=== PATIENT | female | born 1975 | race Caucasian/White ===

== ENCOUNTER → 2017-11-02 11:13 | Outpatient (CLI) | payer BC, SELFPAY | PROVIDERS: Family Provider Internal Medicine; PCP Internal Medicine | DX: R10.13 Epigastric pain (principal); R94.31 Abnormal electrocardiogram [ECG] [EKG]; R07.9 Chest pain, unspecified | CPT/HCPCS: 93225; 93226 ==

== ENCOUNTER → 2018-01-17 11:42 | Outpatient (CLI) | payer BC, SELFPAY ==
--- NOTE | 2018-01-17 15:30 | STRESSREP ---
Stress Test Report Treadmill EKG results: Resting EKG: Normal sinus rhythm, normal axis, normal intervals, no evidence of previous myocardial infarction. Treadmill EKG: Patient exercised according to a Florentino protocol for 9 minutes and 0 seconds achieving a workload of 10.1 METS. Resting heart rate was initially 72 beats a minute cynthia to maximum 157 bpm which represents 89% of the maximal age-predicted heart rate. Resting blood pressure was 102/68 and cynthia to maximum of 148/84. Test was terminated due to leg fatigue. During exercise the patient's heart rate increased as expected. Patient had subtle upsloping ST segment depression at peak exercise but did not reach criteria for ischemia. Rare PAC noted. No ventricular arrhythmias noted. Conclusions: Normal adequate treadmill EKG. Negative for ischemia by EKG criteria. No anginal symptoms noted. Rare PAC noted. Average exercise capacity for age. Test terminated due to leg discomfort.
== END ==
PROVIDERS: Family Provider Internal Medicine; PCP Internal Medicine; Visit Provider Internal Medicine Cardiovascular Disease
DX: R07.9 Chest pain, unspecified (principal)
CPT/HCPCS: 93017

== ENCOUNTER 2018-08-08 16:34 | Emergency (ER) | payer BC, SELFPAY ==
[2018-08-08 16:36] VITALS: BP 119/87; PULSE 72; RESP 18; TEMP 36.6; O2SAT 100; BMI 21.6
--- NOTE | 2018-08-08 17:10 | ED.VIS.GEN ---
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 She had gradual onset of discomfort in her medial left scapular area going up into her neck, and it has worsened, especially at work. When she puts parts on her lap to work on them, it is more comfortable position-quiroz. She denies any numbness or weakness in her arms. It also hurts up into her left neck and worse to turn her head to the left. She is right-hand dominant. She denies any injury or new motions at work. Prior similar symptoms: No Past Medical History - Allergies and Home Meds Allergies/Adverse Reactions: Allergies acetaminophen [From Vicodin] Allergy (Verified 08/08/18 16:36) Hives hydrocodone Allergy (Verified 08/08/18 16:36) Hives Sulfa (Sulfonamide Antibiotics) Allergy (Verified 08/08/18 16:36) Swelling Primary Care Physician: Dana Merchant MD [Primary Care Provider] - Past Medical History: None Lives: Spouse/ Significant Other Smoking Status: Current some day smoker Review of Systems General: Denies: Chills, Fever Musculoskeletal: Reports: Neck pain, Back pain. Denies: Swelling, Extremity Pain Skin: Denies: Rash, Abscess, Wounds Neurological: Denies: Headache, Weakness, Parasthesia, Numbness Physical Exam Vital Signs/Narrative: Vital Signs Temp Pulse Resp BP Pulse Ox 08/08/18 16:36 98 F 72 18 119/87 H 100 Inital Vital Signs reviewed: Yes General: Well nourished, Well developed, - - Well-appearing, NAD Head: Normocephalic, Atraumatic Eyes: Perrl, EOMI Back: - - Tender in trapezius on left, especially in area of rhomboids on left between the thoracic spine and the scapula. No sternocleidomastoid tenderness. Full range of motion of the neck and back and left upper extremity including abduction and extension above head.. Negative for: Spinal tenderness Extremities: Nontender - No proximal humerus or bony scapular tenderness. No clavicle tenderness., No edema Skin: Normal color, No rash, No Trauma Neurological: Alert, Oriented x3, Cranial nerves II-XII grossly intact, Normal Strength, Normal Sensation, Normal DTR Psychological: Normal affect Diagnostic/Tx/Re-eval - Medical Decision Making No x-rays are indicated, this is likely muscular pain due to overuse. I think mostly involving the trapezius, possibly also the left rhomboids. Prescribed meloxicam and Norflex, given injections of Toradol and Norflex here and advised to follow-up and try to find a lower position to use her arms if possible. ED Disposition - Plan for ED Patient: Disposition: Home or Assisted Living Chief Complaint: Upper Extremity Injury Diagnosis: Strain of left trapezius muscle Instructions: ED Sprain Thoracic Spine Prescriptions: Meloxicam 7.5 - 15 mg PO DAILY PRN #15 tablet PRN Reason: Pain Orphenadrine [Norflex ER] 100 mg PO BID PRN #28 tablet PRN Reason: Muscle Spasm Referrals: Dana Merchant MD [Primary Care Provider] - 1 Week if not improving
[2018-08-08] MEDS: Ketorolac 30 MG/ML Syringe IM (17:26)
[2018-08-08] MEDS: Orphenadrine 60 MG/2 ML Ampul IM (17:26)
[2018-08-08 17:53] VITALS: PULSE 74; RESP 18; O2SAT 100
== END 2018-08-08 17:54 | disposition home or self-care (01) ==
PROVIDERS: Emergency Provider Emergency Medicine; Family Provider Internal Medicine; PCP Internal Medicine
DX: S29.012A Strain of muscle and tendon of back wall of thorax, initial encounter (principal); X50.1XXA Overexertion from prolonged static or awkward postures, initial encounter; Y93.9 Activity, unspecified; F17.200 Nicotine dependence, unspecified, uncomplicated
CPT/HCPCS: 96372; 99282

== ENCOUNTER → 2018-11-05 08:57 | Outpatient (CLI) | payer BC, SELFPAY ==
--- NOTE | 2018-11-05 09:00 | RAD_ITS ---
STUDY: X-RAY - ESOPHAGUS (BARIUM SWALLOW) WITH FLUOROSCOPY REASON FOR EXAM: Female, 43 years old. Oral pharyngeal dysphagia. TECHNIQUE: 12 view(s) of the esophagus were obtained following swallowing of barium. FLUOROSCOPY TIME (if supplied): (0:41) minutes/seconds COMPARISON: None. FINDINGS: There is no demonstrated esophageal foreign body. There is no demonstrated stricture or mucosal abnormality. Normal gastroesophageal junction, without a demonstrated hiatal hernia. The patient ingested a 12 mm tablet of barium without any difficulty. Normal visualized aortic arch and descending thoracic aorta. Normal visualized pulmonary parenchyma. Normal visualized osseous structures of the thorax. RAD/Esophagus Only IMPRESSION: Normal plain film x-ray examination (barium swallow) of the esophagus. Electronically Signed: Silviano De La O MD at 11:24 EST , Service support ,
== END ==
LOC: RAD 08:58
PROVIDERS: Family Provider Internal Medicine; PCP Internal Medicine; Referring Provider Nurse Practitioner Adult Health; Visit Provider Nurse Practitioner Adult Health
DX: R13.12 Dysphagia, oropharyngeal phase (principal)
CPT/HCPCS: 74220

== ENCOUNTER 2020-02-29 15:40 | Emergency (ER) | payer SELFPAY ==
[2020-02-29 15:40] VITALS: BP 136/93; PULSE 101; RESP 16; TEMP 36.4; O2SAT 97; BMI 20.6
--- NOTE | 2020-02-29 15:54 | ED.VIS.GEN ---
History of Present Illness Chief Complaint: Nausea/Vomiting/Diarrhea Informant: Patient Onset: Hours - Onset 0300 Context: Sudden Onset Timing: Continuous - Abdominal pain is continuous. Quality: Pain that waxes and wane and is crampy in nature Location: Generalized Current Severity: Mild Maximum Severity: Moderate Worsened by: Vomiting and diarrhea Relieved by: Nothing Associated Symptoms: Chills and feeling cold Narrative: Patient is a 44-year-old woman who presents because of generalized abdominal pain with nausea, vomiting diarrhea that started at 0300. She has been watching her granddaughter who has been ill for the past 4 to 5 days. Her granddaughter initially had nausea, vomiting diarrhea. Granddaughter now has temperature documented 104 with respiratory symptoms. Patient denies headache, visual, ocular auditory symptoms. Patient denies upper respiratory symptoms. She denies cough. She denies chest pain. She denies back or flank pain. She denies dysuria, frequency, urgency or hematuria. She does have a past medical history of hypertension. She denies history of IBS or inflammatory bowel disorder. Prior similar symptoms: No Recent Illness/Hospitalization: No - Past Medical History (1) History of hypertension Status: Acute Past Medical History - Allergies and Home Meds Allergies/Adverse Reactions: Allergies hydrocodone Allergy (Verified 02/29/20 15:42) Hives Sulfa (Sulfonamide Antibiotics) Allergy (Verified 02/29/20 15:42) Swelling Primary Care Physician: Dana Merchant MD [Primary Care Provider] - Prior records reviewed: Yes Surgical History: noncontributory Lives: Spouse/ Significant Other Smoking Status: Current some day smoker Alcohol: Rare Drugs: None Review of Systems General: Reports: Chills, Malaise. Denies: Fever, Subjective, Sweats Eyes: Denies: Visual changes - bilaterally, Blurred Vision - bilaterally ENT: Reports: - - She does report dry mouth and thirst.. Denies: Bilateral ear pain, Rhinorrhea, Sore throat Cardiovascular: Reports: - - Does report lightheadedness.. Denies: Chest pain, Palpitations Respiratory: Denies: Dyspnea, Cough, Dyspnea on exertion Gastrointestinal: Reports: Abdominal pain, Nausea, Vomiting, Diarrhea. Denies: Melena, Hematochezia Genitourinary: Denies: Dysuria, Hematuria, Frequency Musculoskeletal: Denies: Myalgias, Arthralgias, Neck pain, Back pain, Swelling, Extremity Pain, -, - Neurological: Reports: Weakness. Denies: Headache, Parasthesia Hematologic: Denies: Easy bruising, Easy bleeding Allergy: Denies: Uticaria Physical Exam Vital Signs/Narrative: Vital Signs Temp Pulse Resp BP Pulse Ox 02/29/20 15:40 97.6 F L 101 H 16 136/93 H 97 Inital Vital Signs reviewed: Yes General: Well nourished, Well developed, No Acute Distress Head: Normocephalic, Atraumatic Eyes: Perrl, EOMI. Negative for: Pale conjunctiva, Scleral icterus ENT: No rhinorrhea, TM's clear, Dry mucous membranes Neck: Supple, Nontender, No lymphadenopathy, No JVD Cardiovascular: Regular rhythm, No murmurs, Normal S1, Normal S2, Tachycardia Respiratory: No distress, CTA bilaterally, Chest nontender Abdomen: Soft, Nontender, Nondistended, No masses, Hyperactive bowel sounds. Negative for: Hepatomegaly, Splenomegaly Rectal: Deferred Back: Nontender, Normal Inspection Extremities: Nontender, No edema Skin: Normal color, No rash, - - Has a tanned secondary to going to tanning salon. Neurological: Alert, Oriented x3, Cranial nerves II-XII grossly intact, Normal Strength, Normal Sensation Psychological: Normal affect, Normal Mood Diagnostic/Tx/Re-eval Laboratory Results 02/29/20 02/29/20 16:10 16:50 Sodium Cancelled 139 Potassium Cancelled 3.7 Chloride Cancelled 108 H Carbon Dioxide Cancelled 25.0 Anion Gap Cancelled 6 BUN Cancelled 11 Creatinine Cancelled 0.83 Estim Creat Clear Calc Cancelled 72.87 Est GFR (MDRD) Af Amer Cancelled 95 Est GFR (MDRD) Non-Af Cancelled 79 BUN/Creatinine Ratio Cancelled 13.3 Glucose Cancelled 94 Calcium Cancelled 8.9 Patient was reassessed at 1735. She is smiling. She reports feeling markedly better. She has had no vomiting diarrhea in the department. Plan is to discharge a prescription for Zofran and Bentyl - Medical Decision Making Patient presents with viral symptoms with abdominal pain associated with vomiting diarrhea. She does have ill contact, granddaughter who she watches. Clinically patient appears dehydrated and is tachycardic. 1 L of normal saline was ordered. Basic metabolic panel was ordered based on the amount of vomiting diarrhea to assess renal function as well as electrolytes. She did receive 4 mg of Zofran IV piggyback. Bentyl for abdominal cramping pain. ED Disposition - Plan for ED Patient: Disposition: Home or Assisted Living Diagnosis: Abdominal pain, vomiting, and diarrhea, Sinus tachycardia, Mild dehydration Instructions: ED Vomiting and Diarrhea Nonspecific Adult Prescriptions: Dicyclomine HCl [Bentyl] 20 mg PO TIDAC #20 cap Transmission Status: Pending to [facility] #[facility] Ondansetron [Zofran Odt] 4 mg PO Q8H PRN PRN #10 tab PRN Reason: Nausea Transmission Status: Pending to [facility] Referrals: Dana Merchant MD [Primary Care Provider] - 1 Week if not improving Additional Instructions: 1. Advance diet as tolerated 2. Drink plenty of fluids over the next 24 to 48 hours 3. Patient has cared for her granddaughter who is being tested for COVID-19 infection. Patient does have viral symptoms. Granddaughters test results should be available in 3 to 5 days.
[2020-02-29] MEDS: 0.9% Normal Saline 1,000 ML 1000 ML IV (16:07)
[2020-02-29] MEDS: Ondansetron 4 MG/2 ML Vial IV (16:07)
[2020-02-29] MEDS: Dicyclomine 10 MG Capsule 20 MG PO (17:05)
[2020-02-29 17:13] LABS: Anion Gap 6 (5-15); BUN 11 mg/dL (7-18); BUN/Creat Ratio 13.3 RATIO (10-20); Calcium,Total 8.9 mg/dL (8.5-10.1); Chloride 108 mmol/L (98-107); Creatinine, Serum 0.83 mg/dL (0.55-1.02); EST Glomerular Filtration Rate 79 mL/min (>60); Est Glom Filt Rate - Afr Amer 95 mL/min (>60); Estimated Creatinine Clearance 72.87 ml/min; Glucose 94 mg/dL (74-106); Potassium 3.7 mmol/L (3.5-5.1); Sodium Level 139 mmol/L (136-145)
== END 2020-02-29 17:51 | disposition home or self-care (01) ==
PROVIDERS: Emergency Provider Emergency Medicine; PCP Internal Medicine
DX: R10.9 Unspecified abdominal pain (principal); R11.2 Nausea with vomiting, unspecified; R19.7 Diarrhea, unspecified; R00.0 Tachycardia, unspecified; E86.0 Dehydration; F17.200 Nicotine dependence, unspecified, uncomplicated
CPT/HCPCS: 80048; 96361; 96374; 99285; J7030; A4216; J2405

== ENCOUNTER 2021-02-03 14:46 | Emergency (ER) | payer BC, SELFPAY ==
[2021-02-03 14:47] VITALS: BP 98/69; PULSE 75; RESP 16; TEMP 36.3; O2SAT 99; BMI 19.9
[2021-02-03] MEDS: Ondansetron 4 MG/2 ML Vial IV (15:15)
[2021-02-03] MEDS: 0.9% Normal Saline 1,000 ML 1000 ML IV (15:15)
[2021-02-03] MEDS: Dicyclomine 20 MG/2 ML Vial IM (15:15)
--- NOTE | 2021-02-03 15:15 | EDS_ITS ---
HPI History of Present Illness Chief Complaint: Nausea/Vomiting/Diarrhea Narrative Narrative: Patient presents with 3-day history of nausea vomiting diarrhea and abdominal cramping. She has coworkers with similar symptoms. She describes 6-7 episodes of loose and watery diarrhea every day. She had some fever yesterday but that has subsided. No recent travel history, no recent antibiotics. She has no back pain. She denies . She denies any vaginal bleeding. No dysuria or hematuria. No flank pain. No chest pain or shortness of breath. She does feel somewhat lightheaded when she stands up. PFSH PFSH Home Medications lisinopril 20 mg PO DAILY 08/08/18 [History Last Taken Unknown] meloxicam 7.5 - 15 mg PO DAILY PRN #15 tab 08/08/18 [Rx Last Taken Unknown] orphenadrine citrate 100 mg PO BID PRN #28 tablet 08/08/18 [Rx Last Taken Unknown] dicyclomine 20 mg PO TIDAC #20 cap 02/29/20 [Rx Last Taken Unknown] ondansetron 4 mg PO Q8H PRN PRN #10 tab 02/29/20 [Rx Last Taken Unknown] ondansetron 4 mg PO Q8H #10 tab 02/03/21 [Rx Last Taken Unknown] Allergy/AdvReac Type Severity Reaction Status Date / Time hydrocodone Allergy Hives Verified 02/03/21 14:49 Sulfa (Sulfonamide Allergy Swelling Verified 02/03/21 14:49 Antibiotics) Social History (System 05/20/19 @ 10:49 by Nelly Arreola) Smoking Status: Current every day smoker ROS ROS ED ROS Narrative Past medical history: Reviewed Medications: Reviewed Social history: Noncontributory Review of systems: All systems negative except as indicated General: Fever yesterday has resolved. She does feel somewhat lightheaded. Eyes: No visual changes ENT: No upper airway congestion, normal voice Neck: No neck pain Cardiovascular: No chest pain Respiratory: No shortness of breath or cough Gastrointestinal: Abdominal cramping with nausea vomiting diarrhea. Genitourinary: No dysuria Musculoskeletal: Denies myalgias no difficulty with ambulation Skin: No rash Neurological: No memory loss, confusion or any focal weakness Psych: No recent behavioral changes Hematologic: No easy bleeding or easy bruising EXAM Physical Exam Narrative Exam Narrative: Physical exam General: Patient appears relatively comfortable in the bed Head: Normocephalic, Atraumatic Eyes: Conjunctiva not pale ENT: Slightly dry mucous membranes Neck: Supple, Nontender, No lymphadenopathy Cardiovascular: Regular rate, Regular rhythm Respiratory: No distress, CTA bilaterally Abdomen: Soft, there is mostly periumbilical pain without any guarding or rebound. There is no specific pain at McBurney's. No right upper quadrant pain. There is no guarding or rebound. Some slight left lower quadrant pain. Overall abdomen is benign. Back: Nontender, Normal Inspection. Negative for: CVA tenderness Extremities: Nontender, No edema Skin: Normal color, No rash Neurological: Alert, Normal Strength, Normal Sensation Psychological: Normal affect Const Vital Signs: 02/03/21 14:47 Temperature 97.3 F L Temperature Source Temporal Pulse Rate 75 Respiratory Rate 16 Blood Pressure 98/69 Blood Pressure Mean 78 Pulse Ox 99 Oxygen Delivery Method Room Air MDM MDM MDM Narrative Medical decision making narrative: Patient has an unremarkable work-up. She received IV fluids and she improved this is likely a self-limiting pathology, she does have sick contacts at work. A Covid is pending but otherwise I believe patient can be discharged with symptomatic treatment. Lab Data Labs: Laboratory Results - last 24 hr 02/03/21 15:10 WBC 5.7 RBC 4.51 Hgb 14.0 Hct 41.4 MCV 91.8 MCH 31.0 MCHC 33.8 RDW Std Deviation 40.0 RDW Coeff of Esther 11.9 Plt Count 295 MPV 9.4 Immature Gran % (Auto) 0.300 Neut % (Auto) 54.3 Lymph % (Auto) 35.1 Humphreys % (Auto) 7.5 Eos % (Auto) 2.1 Baso % (Auto) 0.7 Absolute Neuts (auto) 3.1 Absolute Lymphs (auto) 2.01 Nucleated RBC % 0 Discharge Plan Triage Chief Complaint: Nausea/Vomiting/Diarrhea ED Provider: Mario Noguera Dx/Rx/DC Orders Clinical Impression: Nausea vomiting and diarrhea Instructions: ED Gastroenteritis, Viral (Adult), ED Vomiting and Diarrhea ... Prescriptions: New ondansetron 4 mg tablet,disintegrating 4 mg PO Q8H Qty: 10 RF: 0 No Action lisinopril 20 MG tablet 20 mg PO DAILY RF: 0 meloxicam 7.5 MG tablet 7.5 - 15 mg PO DAILY PRN (Reason: Pain) Qty: 15 RF: 0 orphenadrine citrate 100 MG tablet 100 mg PO BID PRN (Reason: Muscle Spasm) Qty: 28 RF: 0 ondansetron 4 MG tablet 4 mg PO Q8H PRN PRN (Reason: Nausea) Qty: 10 RF: 0 dicyclomine 10 MG capsule 20 mg PO TIDAC Qty: 20 RF: 0 Primary Care Provider: Dana Merchant Referrals: Dana Merchant MD [Primary Care Provider] -
[2021-02-03 15:18] LABS: Absolute Lymphocyte Count 2.01 X10^3/uL (0.83-4.51); Absolute Neutrophil Count 3.1 X10^3/uL (2.0-7.7); Basophil# 0.04 X10^3/uL; Basophil% 0.7 % (0-1); Eosinophil# 0.12 X10^3/uL; Eosinophils% 2.1 % (0-5); Hematocrit 41.4 % (37-47); Lymphocyte # 2.01 X10^3/ul (0.83-4.51); Lymphocyte % 35.1 % (19-41); Mean Corp Hgb Conc 33.8 g/dL (32-36); Mean Corpuscular Volume 91.8 fL (81-99); Mean Platelet Vol. 9.4 fl (6.2-12.0); Monocyte# 0.43 X10^3/uL; Monocyte% 7.5 % (0-10); NRBC Flagged by Analyzer 0 % (0-5); Neutrophil # 3.11 X10^3/uL (2.7-7.7); Neutrophil % 54.3 % (47-70); Platelet Count 295 K/mm3 (150-450); RBC Distribution Width CV 11.9 % (11.6-14.6); Red Blood Count 4.51 M/mm3 (4.2-5.4); White Blood Count 5.7 K/mm3 (4.4-11.0)
[2021-02-03 15:37] LABS: ALB/GLOB Ratio 1.2 RATIO (0.9-2.4); AST(SGOT) 10 U/L (15-37); Alanine Aminotransfer ALT/SGPT 20 U/L (13-56); Albumin, Serum 3.9 g/dL (3.2-5.0); Alkaline Phosphatase 42 U/L (45-117); Anion Gap 1 (5-15); BUN 17 mg/dL (7-18); Chloride 105 mmol/L (98-107); Creatinine, Serum 0.85 mg/dL (0.55-1.02); EST Glomerular Filtration Rate 76 mL/min (>60); Est Glom Filt Rate - Afr Amer 92 mL/min (>60); Estimated Creatinine Clearance 67.96 ml/min; Globulin 3.2 g/dL (2.2-4.2); Glucose 95 mg/dL (74-106); Lipase 97 U/L (73-393); Potassium 3.9 mmol/L (3.5-5.1); Protein, Total 7.1 g/dL (6.4-8.2); Sodium Level 138 mmol/L (136-145)
[2021-02-03 16:15] VITALS: BP 100/61; PULSE 55; RESP 16; O2SAT 100
== END 2021-02-03 16:39 | disposition home or self-care (01) ==
LOC: ED 16:14
PROVIDERS: Emergency Provider Emergency Medicine; PCP Nurse Practitioner Primary Care
DX: R11.2 Nausea with vomiting, unspecified (principal); R19.7 Diarrhea, unspecified; F17.200 Nicotine dependence, unspecified, uncomplicated; Z79.899 Other long term (current) drug therapy
CPT/HCPCS: 80053; 83690; 85025; 87426; 96372; 96374; 99283; J7030; A4216; J2405